=== PATIENT | female | born 1960 | race Caucasian/White ===

== ENCOUNTER 2023-11-20 07:10 | Outpatient (CLI) | payer OTHER, SELFPAY ==
--- OUTSIDE RECORDS SUMMARY | 2023-11-20 07:14 | XMS_ITS | Clinical Summary ---
Author Organization [facility] Address [place], [place] [address] Care Team Providers Care Measurement And Sensing Technician Name Role Phone Kinza Phillips Primary Care Provider Allergies Active Allergy Reactions Criticality Noted Date Comments Penicillins Hives 12/31/2007 Medications Medication Sig Dispensed Refills Start Date End Date Status polyethylene glycol-electrolyte (GOLYTELY) 236-22.74-6.74 -5.86 gram suspensionIndication s:Adenomatous polyp of colon, unspecified part of colon Drink 2 liters the day before colonoscopy and 2 liters 6 hours before colonoscopy appointment 4000 mL 11/13/2023 Active acyclovir (ZOVIRAX) 400 mg tabletIndications:He rpes simplex infection of genitourinary system TAKE 1 TABLET BY MOUTH TWO TIMES DAILY. 180 Tablet 3 08/25/2023 Active Active Problems Problem Noted Date Diagnosed Date Adenomatous colon polyp 11/18/2020 Overview: Colonoscopy 11/2020 10 mm polyp, repeat in 3 years Chronic GERD 03/10/2017 Overview: EGD 11/2020 5 cm HH Severe cervical dysplasia 06/05/1991 Overview: 1991 LEEP. 07/2021 NIL/HPV negative. Plan: routine screening Encounters Date Type Department Care Team Description 11/17/2023 3:40 PM CDT Preop Visit [facility] [address] [place] [address] Fariha Fernandez, DO Care (?? Date of Surgical Procedure - 11/20/2023 ?? Name of Procedure to be performed - colonoscopy ?? Facility where Procedure will be performed, including: [place] ?? Performing Provider's Full name - Dr John Paul Ortiz ?? Fax number for where Preoperative exam should be sent - [phone] ?? Any additional items performing facility requires completed during preoperative exam ) 11/17/2023 Travel 11/14/2023 Telephone [facility] [address] [place] [address] John Paul Ortiz MD Appointment (Pre-op needed) 08/25/2023 3:10 PM CDT - 08/25/2023 11:59 PM CDT Hospital Encounter [facility] [address] [place] [address] Kinza Phillips DO Hypertriglyceridemia 08/25/2023 Travel 08/24/2023 Refill [facility] [address] [place] [address] Kinza Phillips DO Refill Request (Acyclovir) 08/21/2023 3:00 PM CDT Ancillary Procedure [facility] [address] [place] [address] 08/21/2023 Travel from Last 3 Months Immunizations Name Administration Dates Next Due Influenza, IIV3 (Age >=3 years) 05/02/2006,05/24 Influenza, IIV4 05/01/2020,03/25/2019,04/06/2018 Influenza, IIV4 (=>6mos) MDV 07/05/2017,05/05/20 17 Td (Age >=7 Years) 05/04/2020 Tdap 07/09/2009 Family History Medical History Relation Name Comments Cancer Father hodgkins Polycystic kidney disease Maternal Grandfather COPD Mother smoker Peripheral vascular disease Mother AAA, leg amputation Cancer-breast Other 2 maternal gre at aunts post shauna Cancer-colon No Family History Cancer-ovarian No Family History Cancer-prostate No Family History Relation Name Status Comments Father Maternal Grandfather Mother Other Social History Tobacco Use Types Packs/Day Years Used Date Smoking Tobacco: Former Cigarettes 0.5 13 1 07/27/1971 - 05/26/1985 Smokeless Tobacco: Never Tobacco Cessation:Counseling Given: Yes Alcohol Use Standard Drinks/Week Comments Yes 0 (1 standard drink = 0.6 oz pur e alcohol) 2 per week PHQ-2 Answer Date Recorded PHQ-2 TOTAL SCORE 0 08/18/2023 Social Connections Answer Date Recorded Frequency of Communication with Friends and Fami ly 0 11/17/2023 Financial Resource Strain Answer Date R ecorded Difficulty of Paying Living Expenses 3 11/17/2023 Difficulty of Paying Living Expenses Not on file 11/17/2023 Food Insecurity Answer Date Recorded Worried About Running Out of Food in the Last Ye ar 1 11/17/2023 Transportation Needs Answer Date Record ed Lack of Transportation (Medical) 1 11/17/2023 Housing Stability Answer Date Recorded Unable to Pay for Housing in the Last Year 1 11/17/2023 Sex and Gender Information Value Date Recorded Sex Assigned at Not on file Gender Identity Not on file Sexual Orientation Not on file Obstetrics History Last Filed Vital Signs Vital Sign Reading Time Taken Comments Blood Pressure 127/84 11/17/2023 3:22 PM CDT Pulse 64 11/17/2023 3:22 PM CDT Temperature 37.1 ??C (98.7 ??F) 07/28/2021 3:05 PM CS T Respiratory Rate 18 09/19/2020 5:08 AM CDT Oxygen Saturation 96% 08/18/2023 7:45 AM CDT Inhaled Oxygen Concentration - - Weight 72.2 kg (159 lb 3.2 oz) 11/17/2023 3:22 P M CDT Height 172.8 cm (5' 8.03) 11/17/2023 3:22 PM CD T Body Mass Index 24.18 11/17/2023 3:22 PM CDT Plan of Treatment Upcoming Encounters Date Type Department Care Team (Late st Contact Info) Description 11/20/2023 7:15 AM CDT Office Visit [facility] at [facility] [address] [place] [id number] John Paul Ortiz MD [address] [place] [address] Health Maintenance Due Date Last Done Comments COVID-19 vaccine series ( season) 2023 Colonoscopy through age 75 11/17/202311/16, 11/16/2020, 11/16/2020, Additional history exists Influenza for age 50-64 02/04/2024 05/01/20 20, 03/25/2019, 04/06/2018, Additional history exists Pap test for age 21-65 07/28/2024 , 07/28/2021, 03/10/2017, Additional history exists Zoster (shingles) series for age 50+ (1 of 2) 08/14/2024 Postponed from 09/06/2009 (Patient discretion) Mammogram for age 45-75 08/17/2024 08/18/19 24, 07/25/2022, 07/26/2021, Additional history exists Depression screening for age 12+ 08/20/2024 08/21/2023, 08/18/2023, 08/18/2023, Additional history exists BMI (ht and wt on same day) for age 18+ 11/16/2024 11/17/2023, 08/18/2023, 08/01/2022, Additional history exists Lipids for age 45-75 08/17/2028 08/18/2023, 08/01/2022, 07/28/2021, Additional history exists Tetanus booster 05/04/2030 05/04/2020, 07/09/2009 Tdap Completed 07/09/2009 Hepatitis C screening for age 18-79 Completed 11/30/2020 HIV for age 15-65 Completed 08/18/2023 Pneumococcal series for age 6-64 Aged Out No longer eligible based on patient's age to complete this topic Procedures Procedure Name Priority Date/Time Associated Diagnosis Comments CT CARDIAC CALCIUM SCORE ONLY WO SINGLE READ Routine 08/25/2023 3:53 PM CDT Hypertriglyceridemia XR DXA BONE DENSITY 2 SITES AXIAL Routine 08/21/2023 2:59 PM CDT Osteoporosis screening XR MAMMO SPRING BILAT SCREEN IMPLANT Routine 08/18/2023 1:19 PM CDT Visit for screening mammogram ANTI HIV 1/2 Routine 08/18/2023 8:51 AM CDT Screening for HIV (human immunodeficiency virus) LIPID PANEL W REFLEX MEASURED LDL Routine 08/18/2023 8:51 AM CDT Lipid screening HPV THIN PREP Routine 07/28/2021 3:30 PM [employer] Pap smear for cervical cancer screening ANTI HCV Routine 11/30/2020 3:00 PM CDT Need for hepatitis C screening test COLONOSCOPY SCREENING Routine 11/16/2020 8:04 AM CDT Screening for colon cancer from Last 3 Months or Most Recently Relevant to Health Maintenance Results * CT CARDIAC CALCIUM SCORE ONLY WO SINGLE READ (08/25/2023 3:53 PM CDT) Anatomical Region Laterality Modality Computed Tomogra phy 08/28/2023 7:57 AM CDT Addenda Addendum by Curtis Edwards MD on 08/28/2023 10:34 AM CDT Table formatting from the original result was not included. For Patients: As a result of the Century Cures Act, medical imaging exams and procedure reports are released immediately into your electronic medical record. ??You may view this report before your referring provider. ?? If you have questions, please contact your health care provider. CT CARDIAC CALCIUM SCORING, 08/25/2023 REPORT: ??High-resolution, ECG-synchronized computed tomography of the heart with attention to the coronary arteries was performed using Siemens HeartView CT. Coronary calcification analyzed using Siemens calcium scoring software. These are the results of the evaluation: Artery Number of Lesions Volume Equiv. Mass Calcium Score LM 0 0.0 0.00 0.0 LAD 1 35.9 8.67 45.1 CX 0 0.0 0.00 0.0 RCA 0 0.0 0.00 0.0 TOTAL 1 35.9 8.67 45.1 Threshold: ??130 HU ??(102.7 mg/cm3 CaHA) *) Calibration factor: 0.790 mg/(HUcm3) CaHA The Computed Tomography of the coronary arteries detected coronary calcifications. ??According to the current state of knowledge (O'Silver, Circulation 2000; 102:126), coronary calcifications are a marker for coronary atherosclerosis. ??The more calcium is detected, the higher is the likelihood for an obstructive coronary disease. ??However, there is no unique relationship between the amount of detected calcium and the extent or localization of this disease. ??The amount of calcium is closely correlated with the extent of coronary atherosclerosis, although the true plaque burden is underestimated. ??With a high amount of coronary calcium, a moderate to high risk of a cardiovascular event within the next 2 to 5 years can be assumed. ?? No Identifiable Calcification Minimal Identifiable Calcification Mild Calcification Moderate Calcification Significant Calcification 0 1-10 11-100 101-400 401 and above (Following Gomez Clin Proc. 1999;74(3):243-252) Please note that all CT scans at this facility use dose modulation, iterative reconstruction and/or weight-based dosing when appropriate to reduce radiation dose to as low as reasonably achievable. ?? CURTIS EDWARDS M.D. [email or web address] Impressions 08/28/2023 7:57 AM CDT The coronary artery calcium score a 45.1 is consistent with mild calcification. Recommend appropriate wrists management. Please note that all CT scans at this facility use dose modulation, iterative reconstruction, and/or weight-based dosing when appropriate to reduce radiation dose to as low as reasonably achievable. Dictated by Radha Edwards MD @ 08/28/2023 7:57:31 AM (Electronically Signed) Narrative 08/28/2023 7:57 AM CDT For Patients: ??As a result of the 21st Century Cures Act, medical imaging exams and procedure reports are released immediately into your electronic medical record. ??You may view this report before your referring provider. ?? If you have questions, please contact your health care provider. INDICATION: CAD screening. TECHNIQUE: CT cardiac calcium score. Comment: The visible lung aranda are clear. Heart size normal. Hiatus hernia. Kinza Phillips DO CT * (ABNORMAL) XR DXA BONE DENSITY 2 SITES AXIAL (08/21/2023 2:59 PM CDT) Anatomical Region Laterality Modality Spine, HIPS, HIPL, HIPR Other Impressions 08/22/2023 1:15 PM CDT Osteopenia. RECOMMENDATIONS: The National Osteoporosis Foundation recommends pharmacologic treatment for patients with T-scores of -2.5 or less, patients with prior history of fragility fractures, or patients with 10-year probability of greater than 3% at hips or greater than 20% of suffering major osteoporotic fractures. Recommend continued optimization of calcium and vitamin D intake through dietary means and/or supplementation and regular exercise. Repeat scan recommended in 3-5 years. Sari Gutierrez PA-C [facility] 08/22/2023 Narrative 08/22/2023 1:15 PM CDT For Patients: Results are automatically released to your [facility] ([employer]) account once available, in compliance with federal regulations. This means that you may see your results before your provider has had a chance to review them. Please allow 2-3 business days for your provider to comment on the results. XR DXA Bone Mineral Density (BMD) EXAM LOCATION: [address] [address] PATIENT NAME: Marcell Blair DATE OF : 1960 EXAM DATE: 08/21/2023 REQUESTING PROVIDER: Kinza Phillips, GENDER AT : female HEIGHT: 5' 2.21 (08/18/2023) WEIGHT: ??172 lb (08/18/2023) MENOPAUSAL STATUS: Postmenopausal RACE/ETHNICITY: White RISK FACTORS: White Race CURRENT MEDICATION FOR BONE LOSS: NONE INDICATION: Osteoporosis screening COMPARISON DATE(S): None DXA scans are compared to prior studies for a patient only when the two (or more) studies were performed on the same scanner. It is not possible to compare data generated on one scanner to data from another because there are not standards in DXA equipment. This applies even if the two scanners are made by the same atg java developer. PROCEDURE: Dual-energy x-ray absorptiometry performed with routine technique. Reporting is completed in the form of a T-score. The T-score represents the standard deviation from peak bone mass based on young healthy adult. A Z-score is used for diagnosis in premenopausal women, and for men under the age of 50. FINDINGS: RESULT LUMBAR SPINE L1 - L4 BMD: 1.558 g/cm2 T-Score: + 2.9 Z-Score: + 4.0 Change from prior: ??None RESULTS FEMUR Left femoral neck BMD: 0.876 g/cm2 T-Score: - 1.2 Z-Score: + 0.0 Change from prior: ??None Right femoral neck BMD: 0.883 g/cm2 T-Score: - 1.1 Z-Score: + 0.0 Change from prior: ??None Left hip BMD: 1.075 g/cm2 T-Score: + 0.5 Z-Score: + 1.3 Change from prior: ??None Right hip BMD: 1.067 g/cm2 T-Score: + 0.5 Z-Score: + 1.3 Change from prior: ??None WHO criteria: Normal: T-score at or above -1 SD Osteopenia: T-score between -1.1 and -2.4 SD Osteoporosis: T-score at or below -2.5 SD FRAX RISK CALCULATION (USED FOR OSTEOPENIA ONLY): 10-year probability of major osteoporotic fracture: 7.7%. 10-year probability of hip fracture: 0.6%. Kinza Phillips DO DEXA * XR MAMMO SPRING BILAT SCREEN IMPLANT (08/18/2023 1:19 PM CDT) Anatomical Region Laterality Modality BREASTS, Breast Left, Breast Right Bilateral Mammography Impressions 08/18/2023 1:30 PM CDT ??There is no radiographic evidence for malignancy. ??Recommend annual mammograms. MAMMOGRAM ASSESSMENT: ??ACR 2 Benign PATIENTS: You will also receive a letter with your examination results in an easy to read format. ??If you have questions about your results, please contact your referring provider. Narrative 08/18/2023 1:30 PM CDT For Patients: As a result of the 21st Century Cures Act, medical imaging exams and procedure reports are released immediately into your electronic medical record. You may view this report before your referring provider. If you have questions, please contact your health care provider. XR MAMMO SPRING BILAT SCREEN IMPLANT [[id number]] CLINICAL HISTORY: ??This is an asymptomatic 62 y.o. patient. INDICATION FOR EXAM: Mammogram Screening. TECHNIQUE: CC & MLO views were obtained. Implant displacement views were obtained. This study was evaluated with the assistance of Computer-Aided Detection. Breast Tomosynthesis was used in interpretation. COMPARISON FILMS: Yes 07/25/22 [facility] 07/26/21 [facility] FINDINGS: ??The breasts have scattered areas of fibroglandular density. ??No suspicious masses or microcalcifications. ??There are breast implant(s) present.. Kinza Garciat DO MAMMO * (ABNORMAL) LIPID PANEL W REFLEX MEASURED LDL (08/18/2023 8:51 AM CDT) CHOLESTEROL,TOTAL 292(H) 100 - 199 mg/dL 08/18/2023 6:44 PM CDT [facility] Comment: Cholesterol, Total Reference Ranges Desirable <200 mg/dL Borderline 200-239 mg/dL High >=240 mg/dL TRIGLYCERIDES 204(H) <150 mg/dL 08/18/2023 6:44 PM CDT [facility] HDL CHOLESTEROL 63 >40 mg/dL 6:44 PM CDT [facility] NON-HDL CHOLESTEROL 229(H) <145 mg/dl 08/18/2023 6:44 PM CDT [facility] CHOL/HDL RATIO 4.63(H) <4.50 08/18/2023 6:44 PM CDT [facility] LDL CHOLESTEROL 188(H) <=130 mg/dL 08/18/2023 6:44 PM CDT [facility] VLDL CHOLESTEROL 41(H) <=30 mg/dL 08/18/2023 6:44 PM CDT [facility] PROVIDER ORDERED STATUS RANDOM 08/18/2023 6:44 PM CDT [facility] Blood BLOOD SPECIMEN / Unknown Venipuncture / Unknown 08/18/2023 8:51 AM CDT 08/18/2023 8:51 AM CDT Kinza Phillips DO CHEMISTRY [facility] [address] [place] [address], [place] * ANTI HIV 1/2 [[id number]] (08/18/2023 8:51 AM CDT) HIV-1/HIV-2 SCREEN Non-Reacti ve Non-Reacti ve 08/18/2023 6:31 PM CDT [facility] Comment:HIV-1 p24 and HIV-1/ HIV-2 Ab Not Detected. Blood BLOOD SPECIMEN / Unknown Venipuncture / Unknown 08/18/2023 8:51 AM CDT 08/18/2023 8:51 AM CDT Kinza Phillips DO SEND OUTS Performing Organization Address [facility] Co de Phone Number [facility] [address] [place] [address], [place] * HPV HIGH RISK (07/28/2021 3:30 PM [employer]) Pathologist [facility] TYPE 16 Negative Negative 07/30/2021 2:46 PM [employer] [facility] TYPE 18 Negative Negative 07/30/2021 2:46 PM [employer] [facility] OTHER HIGH RISK TYPES Negative Negative 07/30/2021 2:46 PM [employer] [facility] Other (Cervical) Non-Blood / Unknown 07/28/2021 3:30 PM [employer] 07/29/2021 10:25 AM [employer] Narrative [facility] - 07/30/2021 2:46 PM [employer] HPV types 16, 18, 31, 33, 35, 39, 45, 51, 52, 56, 58, 59, 66 and 68 DNA were undetectable or below the pre-set threshold. Methodology: Inés Danae 4800 HPV Test Kinza Phillips DO MICROBIOLOGY [facility] [address] [place] [address], [place] * ANTI HCV (11/30/2020 3:00 PM CDT) HEPATITIS C ANTIBODY Non-React eugenia Non-React eugenia 11/30/2020 8:05 PM CDT [facility] Comment:Antibodies to HCV no t detected; does not exclude the possibility of exposure to HCV. Blood BLOOD SPECIMEN / Unknown Venipuncture / Unknown 11/30/2020 3:00 PM CDT 11/30/2020 3:00 PM CDT Kinza Phillips DO SEND OUTS [facility] [address] [place] [address], [place] * SCAN-COLONOSCOPY (11/16/2020 12:00 AM CDT) Scanner OTHER from Last 3 Months or Most Recently Relevant to Health Maintenance Advance Directives Documents on File Type Date Recorded Patient Retail General Manager Expl anation Healthcare Directive 08/23/2007 12:00 AM A DVANCE DIRECTIVE Care Teams Measurement And Sensing Technician Relationship Specialty Start Date End Date Kinza Phillips [place] [address] PCP - General Family Practice 03/07/17
--- NOTE | 2023-11-20 07:58 | W.ANESCHARGE ---
Anesthesia Charges Start Date/Time Anesthesia Start Date: 11/20/23 Stop Date/Time Anesthesia Stop Date: 11/20/23
--- NOTE | 2023-11-20 08:34 | W.ANESCHARGE ---
Anesthesia Charges Start Date/Time Anesthesia Start Date: 11/20/23 Anesthesia Start Time: 08:05 Stop Date/Time Anesthesia Stop Date: 11/20/23 Anesthesia Stop Time: 08:32
--- NOTE | 2023-11-20 09:19 | W.ANESCHARGE ---
Anesthesia Charges Start Date/Time Anesthesia Start Date: 11/20/23 Anesthesia Start Time: 08:05 Stop Date/Time Anesthesia Stop Date: 11/20/23 Anesthesia Stop Time: 08:32
== END 2023-11-20 07:11 | disposition home or self-care (01) ==
LOC: OP CLINIC 07:13
PROVIDERS: PCP Family Medicine; Visit Provider Internal Medicine Gastroenterology
DX: K63.5 Polyp of colon (principal); K64.8 Other hemorrhoids; Z86.010 Personal history of colon polyps
CPT/HCPCS: 00811; 45385; 88305; J2704

== ENCOUNTER 2024-05-27 08:00 | Day surgery (SDC) | payer OTHER, SELFPAY ==
[2024-05-27] VITALS (12 sets, daily range): BP systolic 116–151; BP diastolic 65–88; PULSE 70–95; RESP 14–20; TEMP 34.8–36.6; O2SAT 93–97; BMI 30.8
[2024-05-27] MEDS: 0.9 % SODIUM CHLORIDE 500 ML 500 ML 50 ML IV (10:11)
--- NOTE | 2024-05-27 10:14 | W.PM.H&PU ---
History & Physical Update History & Physical Update H&P Reviewed and patient assessed: No changes noted
[2024-05-27] MEDS: CEFAZOLIN 2 GM INJ IVP (10:25)
[2024-05-27] MEDS: LIDOCAINE 1%-EPI 1:100,000 20 ML INFILTRATI (11:00)
[2024-05-27] MEDS: BUPIVACAINE 0.25% 30 ML INJECTION (11:00)
--- NOTE | 2024-05-27 11:06 | PM.GSPRC ---
Operative Note Date of procedure: 05/27/24 Pre-op diagnosis: 1. Symptomatic ventral/supraumbilical hernia. Post-op diagnosis: 1. Supraumbilical hernia containing preperitoneal fat. Type of Procedure: 1. Open ventral/supraumbilical hernia repair with mesh. Indications: 63-year-old female was seen in clinic for evaluation of supraumbilical bulge. She noticed the bulge 6 months prior to presentation. The bulge has been increasing in size and has been bothering the patient. On clinical exam patient's umbilicus was in the natural place (patient is s/p panniculectomy). A few cm superior to the umbilicus was a palpable bulge that was approximately golf ball sized. I was not able to reduce the bulge. Patient was then referred for CT scan that showed fat containing supraumbilical hernia. Given patient's clinical history and her symptoms, an open ventral/supraumbilical hernia repair was recommended. The procedure was discussed in detail. The risks associated procedure including infection, bleeding, injury to intra-abdominal organs, and hernia recurrence were all discussed with the patient, and she agreed to proceed. Procedure Description: After discussing the risks and benefits of the procedure, the patient signed informed consent.? The operative site was marked and the patient was brought to the operating room and placed on the operating table in supine position.? Care was taken to pad the patient's pressure points.?? The patient was then intubated by anesthesia.?? The operative site was then prepped and draped in the usual sterile fashion.? A time-out was then performed. Local anesthetic was injected the surgical site. A vertical skin incision was made with a scalpel several cm superior to the umbilicus. Subcutaneous fat was divided with cautery. Scar tissue was noted in subcutaneous fat from patient's previous panniculectomy. The incarcerated hernia was identified. The hernia defect was identified and preperitoneal fat was incarcerated through the hernia. This was dissected off the anterior fascia with cautery. The anterior fascial defect was approximately 1.4 cm with weak surrounding fascia. Preperitoneal fat was then reduced into the preperitoneal space. I then developed preperitoneal space for mesh placement. This was done with cautery and care not to injure intra-abdominal organs. I then used small Ventralex ST mesh patch for hernia repair. This mesh was inserted into preperitoneal space and sutured in place to the anterior fascia with interrupted 0-0 Nurolon sutures. The tails of mesh patch were then cut and discarded. The fascia was then closed over the mesh with a running 2-0 Vicryl suture. Subcutaneous fat was reapproximated with interrupted Vicryl sutures. The dermis was then reapproximated with interrupted 3-0 Vicryl sutures. The skin was closed with a running 4-0 Monocryl stitch. The length of the incision was approximately 3 cm. Steri-Strips and sterile pressure dressing were placed over the incision. All counts were correct at the end of the case. ? The patient was then woken and transported to the recovery area in stable condition. ? The patient tolerated the procedure well. Findings: Small fascial defect with incarcerated preperitoneal fat. The hernia was reduced and fascial defect was repaired with small Ventralex ST patch. Anesthesia: GETA Surgeon: Antony Augustin MD Estimated blood loss (mL): 5 Condition: stable Disposition: PACU
--- NOTE | 2024-05-27 11:19 | W.ANESCHARGE ---
Anesthesia Charges Start Date/Time Anesthesia Start Date: 05/27/24 Anesthesia Start Time: 10:16 Stop Date/Time Anesthesia Stop Date: 05/27/24 Anesthesia Stop Time: 11:16
== END 2024-05-27 12:44 | disposition home or self-care (01) ==
PROVIDERS: PCP Family Medicine; Visit Provider Surgery
PROC: (CPT 49592; principal; 2024-05-27 09:30)
DX: K43.6 Other and unspecified ventral hernia with obstruction, without gangrene (principal)
CPT/HCPCS: 49592; 00750; C1781; J0330; J0665; J0690; J1100; J1630; J2250; J2405; J2704; J2710; J3010; J7030